=== PATIENT | female | born 1955 | race Caucasian/White ===

== ENCOUNTER 2025-03-22 02:48 | Day surgery (SDC) | payer MEDICARE, SELFPAY ==
[2025-03-12 09:23] VITALS: BMI 34.2
--- NOTE | 2025-03-12 09:45 | PC.NURSE ---
Report to the Outpatient Waiting Room, entrance under the green pavilion located off [facility], at time ___6:00AM____ on date ___03/22/25____. Planned Procedure Time: ___7:30AM .? Time changes happen often and if your time is changed the preop area will call you the afternoon before. - You and your visitor will be asked to self-screen and do not enter if you have any COVID symptoms. Please call surgeon if you need to reschedule. - A mask is optional within the hospital at this time. Patients may have clear liquids (water, carbonated beverages, clear teas, apple juice) until 3 hours prior to surgery (4:30AM) with a maximum of 20 ounces. - No food from midnight until time of surgery and no smoking, or chewing tobacco (or any form of nicotine). No chewing gum, candy or mints. Take only the following medications with a SIP of water on the morning of surgery: ___METOPROLOL DO NOT STOP ANY OF YOUR OTHER PRESCRIPTION MEDICATIONS PRIOR TO SURGERY EXCEPT THE FOLLOWING Hold all vitamins and supplements for 3 days per anesthesiologist.-LAST DOSE 03/18/25. Please no make-up, nail dutch, hairspray, perfume, deodorant, or body powder the day of surgery.? No jewelry (including any body piercings) or valuables the day of surgery, leave them at home.? Please take a shower or bath the night before, or the morning of, surgery with an antibacterial soap.? Wear comfortable, loose fitting clothing.? - Jewelry must be removed prior to entering the operating room.? Rings and piercings that are not removed may be cut off. - The hospital will not accept responsibility for valuables.? - Please leave all valuables, including medications, at home the day of surgery. If you are going home after surgery, a licensed set key driver must drive you home.? - NO public transportation without another adult if you receive anesthesia. - We recommend that an adult stay with you for 24 hours following discharge. - We also recommend that you do not drive, make important decision, drink alcoholic beverages, or take any drugs that were not prescribed by your health care provider for at least 24 hours after your discharge time. Follow any additional instructions given to you from your surgeon. Telephone instructions given to ____PATIENT and asked if any additional questions and then verbalized understanding. Patient advised to call surgeon office or pre surgery nurse liaison [phone] if any additional questions.
[2025-03-22] VITALS (8 sets, daily range): BP systolic 102–133; BP diastolic 51–96; PULSE 65–78; RESP 14–19; TEMP 36.3–36.8; O2SAT 92–97
--- NOTE | ~2025-03-22 | XR_ITS ---
INTRAOPERATIVE FLUOROSCOPY: CLINICAL HISTORY: 69 years old Female; ARTHRODESIS RIGHT FOOT PROCEDURE COMMENTS: Limited intraoperative fluoroscopy of the right great toe was performed. CUMULATIVE DOSE: 0.12 mGy FLUOROSCOPY TIME: 27 seconds FINDINGS/IMPRESSION: Please refer to operative note for further details. Reviewed, dictated and finalized at location A.
--- OUTSIDE RECORDS SUMMARY | 2025-03-22 02:53 | XMS_ITS | Encounter Summary ---
Author Organization [facility] Address [address] [place] [address] Care Team Providers Care Cattle Dealer Name Role Phone Bart Betancourt MD Primary Care Provider [phone] Encounter Details Date Type Department Care Team (Late st Contact Info) Description 03/13/2025 Transcribe Orders [facility] Cardiopulmonary Services [address] [place], [place] [phone] Murray Peter MD [address] [place] [address] Social History Tobacco Use Types Packs/Day Years Used Date Smoking Tobacco: Never Comments No Sex and Gender Information Value Date Recorded Sex Assigned at Female 03/13/2025 9:49 AM CDT Legal Sex Female 9:39 PM CDT Gender Identity Not on file Sexual Orientation Not on file documented as of this encounter Plan of Treatment Not on file documented as of this encounter Visit Diagnoses Diagnosis Pre-op evaluation- Primary Preoperative examination, unspecified documented in this encounter Care Teams Cattle Dealer Relationship Specialty Start Date End Date Bart Betancourt MD [address] [place] [address] PCP - General FAMILY PRACTICE 05/02/23 documented as of this encounter
--- OUTSIDE RECORDS SUMMARY | 2025-03-22 02:53 | XMS_ITS ---
Author Organization [facility] Address [address] [place] [address] Care Team Providers Care Color Worker Name Role Phone Asia BETTS, Steven Primary Care Provider Unavailab jerod Barker Marichuy Unavailable [phone] Jose Miguel Benites Unavailable [phone] REASON FOR VISIT bunion sx consult Encounters Encounter Location Date Provider Diagnosis Patsy Benites DPM [facility] [address] [place] [id number] 08/15/2024 Jose Miguel Benites PLAN OF TREATMENT No Information Progress Notes * Margie DREWB:1955 (69 yo F)Acc No.[id number]:08/15/2024 Patient: Noelle DREW Provider: Jose Miguel Benites DPM, FACFAS :1955 Age:68 Y Sex:Female Date:08/15/2024 Address:[address] [place] [address] [id number] Pcp:Steven Betancourt MD Subjective: * Chief Complaints: * 1. Bunion sx consult. * Medical History: Objective: Assessment: Plan: * Treatment: * Billing Information: * Visit Code: * Procedure Codes: * Sign off status: Pending * Provider: Jose Miguel Benites DPM, ISABEL Date: 08/15/2024
--- OUTSIDE RECORDS SUMMARY | 2025-03-22 02:53 | XMS_ITS | Encounter Summary ---
Author Organization [facility] Address [address] [place] [address] Care Team Providers Care Power Transformer Repairer Name Role Phone Bart Betancourt MD Primary Care Provider Encounter Details Date Type Department Care Team (Late st Contact Info) Description 03/14/2025 Transcribe Orders [facility] Cardiopulmonary Services [address] [place] [phone] Melissa Howe MD [place] [phone] Social History Tobacco Use Types Packs/Day Years Used Date Smoking Tobacco: Never Comments No Sex and Gender Information Value Date Recorded Sex Assigned at Female 03/13/2025 9:49 AM CDT Legal Sex Female 9:39 PM CDT Gender Identity Not on file Sexual Orientation Not on file documented as of this encounter Plan of Treatment Not on file documented as of this encounter Results * ECG 12 lead (03/13/2025 10:05 AM CDT) 03/13/2025 10:0 5 AM CDT Narrative [facility] - 03/14/2025 11:59 AM CDT HFG Test Date: 2025-03-13 Pat Name: ELPIDIO DREW Department: 100 Room: Gender: Female Mortgage Field Inspector: : 1955 Requested By: MELISSA HOWE Order Number: [id number] Heron MD: Yosef Molina Measurements Intervals [place] Rate: 69 P: 52 NE: 185 QRS: -85 QRSD: 97 T: 65 QT: 402 QTc: 433 Interpretive Statements SINUS RHYTHM WITH OCCASIONAL VENTRICULAR PREMATURE COMPLEXES MARKED LEFT AXIS DEVIATION [QRS AXIS < -30] Procedure Note Yosef Molina MD - 03/14/2025 HFG Test Date: 2025-03-13 Pat Name: ELPIDIO DREW Department: 100 Room: Gender: Female Mortgage Field Inspector: : 1955 Requested By: MELISSA HOWE Order Number: [id number] Reading MD: Yosef Molina Measurements Intervals [place] Rate: 69 P: 52 NE: 185 QRS: -85 QRSD: 97 T: 65 QT: 402 QTc: 433 Interpretive Statements SINUS RHYTHM WITH OCCASIONAL VENTRICULAR PREMATURE COMPLEXES MARKED LEFT AXIS DEVIATION [QRS AXIS < -30] us Melissa Howe MD ECG ORDERABLES Final Result Performing Organization Address City/State/[facility] Co de Phone Number [address] [address] documented in this encounter Visit Diagnoses Diagnosis Pre-op evaluation Preoperative examination, unspecified Pre-op evaluation- Primary Preoperative examination, unspecified documented in this encounter Care Teams Power Transformer Repairer Relationship Specialty Start Date End Date Bart Betancourt MD [address] [place] [address] PCP - General FAMILY PRACTICE 05/02/23 documented as of this encounter
--- OUTSIDE RECORDS SUMMARY | 2025-03-22 02:53 | XMS_ITS | Encounter Summary ---
Author Organization [facility] Address [address] [place] [address] Care Team Providers Care Beater Machine Operator Name Role Phone Bart Betancourt MD Primary Care Provider [phone] Encounter Details Date Type Department Care Team (Late st Contact Info) Description 03/13/2025 Transcribe Orders [facility] Cardiopulmonary Services [address] [place], [place] [phone] Murray Peter MD [address] [place] [address] Social History Tobacco Use Types Packs/Day Years [...] unspecified documented in this encounter Care Teams Beater Machine Operator Relationship Specialty Start Date End Date Bart Betancourt MD [address] [place] [address] PCP - General FAMILY PRACTICE 05/02/23 documented as of this encounter
--- OUTSIDE RECORDS SUMMARY | 2025-03-22 02:53 | XMS_ITS | Encounter Summary ---
Author Organization [facility] Address [address] [place] [address] Care Team Providers Care Proprietary Trader Name Role Phone Bart Betancourt MD Primary Care Provider [phone] Encounter Details Date Type Department Care Team (Late st Contact Info) Description 03/13/2025 Transcribe Orders [facility] Cardiopulmonary Services [address] [place], [place] [phone] Murray Peter MD [address] [place] [address] Social History Tobacco Use Types Packs/Day Years [...] unspecified documented in this encounter Care Teams Proprietary Trader Relationship Specialty Start Date End Date Bart Betancourt MD [address] [place] [address] PCP - General FAMILY PRACTICE 05/02/23 documented as of this encounter
--- OUTSIDE RECORDS SUMMARY | 2025-03-22 02:53 | XMS_ITS | Encounter Summary ---
Author Organization [facility] Address [address] [place] [address] Care Team Providers Care Switch Tender Name Role Phone Bart Betancourt MD Primary Care Provider [phone] Encounter Details Date Type Department Care Team (Late st Contact Info) Description 03/14/2025 Transcribe Orders [facility] Cardiopulmonary Services [address] [place], [place] [phone] Murray Peter MD [address] [place] [address] Social History Tobacco Use Types Packs/Day Years [...] unspecified documented in this encounter Care Teams Switch Tender Relationship Specialty Start Date End Date Bart Betancourt MD [address] [place] [address] PCP - General FAMILY PRACTICE 05/02/23 documented as of this encounter
--- OUTSIDE RECORDS SUMMARY | 2025-03-22 02:53 | XMS_ITS | Patient Health Record ---
Author Organization [facility] Address [address] [place] [address] Care Team Providers Care Client Solutions Manager Name Role Phone Steven Betancourt MD Primary Care Provider UnavailMarichuy Louie Unavailable [phone] Jose Miguel Benites Unavailable [phone] ALLERGIES No Known Allergies REASON FOR REFERRAL No Information MEDICATIONS Medication SIG (Take, Route, Frequency, Duration) Notes Start Date End Date Status amLODIPine Besylate-Valsarta n 10-320 MG TAKE 1 TABLET BY MOUTH ONCE DAILY Oral for 90 Days Active Ozempic (2 MG/DOSE) 8 MG/3ML INJECT 2 MG SUBCUTANEOUSLY WEEKLY Subcutaneous for 28 Days Active Metoprolol Succinate ER 100 MG TAKE 1 TABLET BY MOUTH ONCE DAILY Oral for 90 Days Active glipiZIDE 5 MG TAKE 1 TABLET BY LORETTA TH ONCE DAILY Oral for 90 Days Active hydroCHLOROthiazide 25 MG Oral for 90 Days Active SOCIAL HISTORY Tobacco Use: Social History Observation Description Date Details (start date - stop date) Never Smoker NA - NA Sex Assigned At : Social History Observation Description Sex Assigned At Unknown Tobacco Use/Smoking Question Answer Notes Tobacco use: nonsmoker PROBLEMS Problem Type ICD Code Onset Dates Problem Status W/U Status Risk SNOMED Code Notes Problem Hallux valgus (acquired), right foot (M20.11) Active confirmed 584717099391025 VITAL SIGNS Weight-kg 108.86 kg 07/02/2024 Height 67 in 07/02/2024 Weight 240 lbs 07/02/2024 BMI 37.59 kg/m2 07/02/2024 Encounters Encounter Location Date Provider Diagnosis [facility] [address] [place], [place] [phone] 08/15/2024 Jose Miguel Benites [facility] [address] [phone] 07/02/2024 Marichuy Barker Hallux valgus (acquired), right foot M20.11 ASSESSMENTS Encounter Date Diagnosis Assessment Notes Treatment Notes Treatment Clinical Notes Section Notes 07/02/2024 Hallux valgus (acquired), right foot (ICD-10 - M20.11) 07/02/2024 Other Advised RICE. Advised stretching exercises and supportive shoes. Do not go barefoot. Consider orthtics, PT, injection. Try topical or oral anti-inflammato ry for additional relief if needed. Briefly discussed surgical treatment--proc edure, post op course. She wants to wait until fall as she is doing all the outside mowing etc as her recovers from knee surgery. She will make appointment for x-rays and pre op visit with Dr Benites in July or August. PLAN OF TREATMENT No Information Insurance Providers Payer Name Payer Address Payer Phone Subscriber Number Group Number Insured Name Patient Relationship to Insured Coverage Start Date Coverage End Date [employer] [address] [place], [place] [phone] [id number] Noelle Drew Self - patient is the insured MEDICAL (GENERAL) HISTORY Medical History History ICD Code osteoarthritis hypertension type 2 diabetes Surgical History Surgery Date(Month/Year) cardiac ablation
--- OUTSIDE RECORDS SUMMARY | 2025-03-22 02:53 | XMS_ITS ---
Author Organization [facility] Address [address] [place] [address] Care Team Providers Care Footwear Sales Associate Name Role Phone Steven Betancourt MD Primary Care Provider Unavailab Marichuy Davenport Unavailable [phone] ALLERGIES No Known Allergies REASON FOR VISIT B/L bunions MEDICATIONS Medication SIG (Take, Route, Frequency, Duration) [...] valgus (acquired), right foot (M20.11) Active confirmed [id number] VITAL SIGNS Height 67 in 07/02/2024 Weight 240 lbs 07/02/2024 BMI 37.59 kg/m2 07/02/2024 Weight-kg 108.86 kg 07/02/2024 Encounters Encounter Location Date Provider Diagnosis [facility] [address] [id number] 07/02/2024 Marichuy Barker Hallux valgus (acquired), right [...] in July or August. PLAN OF TREATMENT Treatment Notes Assessment Notes Other Advised RICE. Advised stretching exercises and supportive shoes. Do not go barefoot. Consider orthtics, PT, injection. Try topical or oral anti-inflammatory for additional relief if needed. Briefly discussed surgical treatment--procedure, post op course. She wants to wait until fall as she is doing all the outside mowing etc as her recovers from knee surgery. She will make appointment for x-rays and pre op visit with Dr Benites in July or August. Next Appt Details Follow Up: 2 Months, Reason: Progress Notes * Margie DREWB:1955 (68 yo F)Acc No.[id number]:07/02/2024 Progress Notes Patient: Noelle DREW Provider: Marichuy Barker DPM, [facility] :1955 Age:68 Y Sex:Female Date:07/02/2024 Address:[address] [place] [address] Marilee [place], [id number] Pcp:Stevne Betancourt MD Subjective: * Chief Complaints: * 1. B/L bunions. * HPI: General Podiatry: Noelle presents to office c/o right foot pain. She feels her bunion has been getting worse. She can no longer fit into regular shoes. She feels it is complicating her hip pain as well. She is wondering about having it fixed. * ROS: General / Constitutional: Patient denies change in appetite , chills , fatigue , fever. Patient complains of calf cramps, frequent urination/colds/infections, bruises easily, back/joint pain, muscle stiffness. * Medical History: Osteoarthritis, Hypertension, Type 2 diabetes. * Surgical History: cardiac ablation . * Family History: Mother: stroke, blood clots, diagnosed with Type 2 diabetes mellitus without complication, unspecified whether superintendent terminal insulin use, Heart disease. Father: diagnosed with Type 2 diabetes mellitus without complication, unspecified whether superintendent terminal insulin use, Heart disease. Brother: diagnosed with Type 2 diabetes mellitus without complication, unspecified whether superintendent terminal insulin use. Sister: diagnosed with Type 2 diabetes mellitus without complication, unspecified whether superintendent terminal insulin use. * Social History: Tobacco Use: Tobacco Use/Smoking Tobacco use: nonsmoker. * Medications: Taking Ozempic (2 MG/DOSE) 8 MG/3ML Solution Pen-injector INJECT 2 MG SUBCUTANEOUSLY WEEKLY Subcutaneous , Taking Metoprolol Succinate ER 100 MG Tablet Extended Release 24 Hour TAKE 1 TABLET BY MOUTH ONCE DAILY Oral , Taking amLODIPine Besylate- Valsartan 10-320 MG Tablet TAKE 1 TABLET BY MOUTH ONCE DAILY Oral , Taking hydroCHLOROthiazide 25 MG Tablet Oral , Taking glipiZIDE 5 MG Tablet TAKE 1 TABLET BY MOUTH ONCE DAILY Oral * Allergies: N.K.D.A. Objective: * Vitals: Shoe Size: 11, Wt:240lbs, Wt-k.86, Ht: 67 in, BMI:37.59Index, Body Surface Area: 2.27. * Examination: General Examination: General appearance: alert, pleasant, well-nourished and in no acute distress. Vascular: Pedal pulses palpable b/l. Cap refill less than 3 seconds to digits b/l toes. Neurologic: Alert, oriented. Coordination symmetric. Dermatologic: No open sores. No rashes. Edema to right 1st mpj. Musculoskeletal: Gait steady. Mild antalgia. Pain on palpation right 1st mpj. Hallux in valgus. Prominent medial eminence. 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 Assessment: * Assessment: 1. Hallux valgus (acquired), right foot - M20.11 (Primary) Plan: * Treatment: * Follow Up: 2 Months * Billing Information: * Visit Code: 43895 Office Visit, New Pt., Level 3. * Procedure Codes: * Sign off status: Completed true * Provider: Marichuy Barker DPM, [facility] Date: 07/02/2024 History and Physical Notes * HPI (History of Present Illness) Category Sub-Category Detail Notes Category Not es General Podiatry Noelle george sents to office c/o right foot pain. She feels her bunion has been getting worse. She can no longer fit into regular shoes. She feels it is complicating her hip pain as well. She is wondering about having it fixed. Examination Category Sub-Category Detail Notes Category Not es General Examination General appearance: alert, pleasant, well-nouris hed and in no acute distress Vascular: Pedal pulses palpable b/l. Cap refill less than 3 seconds to digits b/l toes. Neurologic: Alert, oriented. Coordination symmetric. Dermatologic: No open sores. No rashes. Edema to right 1st mpj. Musculoskeletal: Gait steady. Mild antalgia. Pain on palpation right 1st mpj. Hallux in valgus. Prominent medial eminence. 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
--- OUTSIDE RECORDS SUMMARY | 2025-03-22 02:53 | XMS_ITS | Clinical Summary ---
Author Organization [facility] Address [address] [place] [id number] Care Team Providers Care Candy Vendor Name Role Phone Spike Ayala MD Primary Care Provider [phone] Encounters Date Type Department Care Team Description 03/14/2025 Transcribe Orders [facility] [address] [place] [address] Melissa Peter MD 03/14/2025 Transcribe Orders [facility] [address] [address] Murray Peter MD 03/13/2025 9:50 AM T Hospital Encounter [facility] [address] [place] [address] Murray Peter MD Discharge Disposition: Home or Self Care (Routine Discharge) 03/13/2025 9:50 AM T Hospital Encounter [facility] [address] [place] [address] Murray Peter MD Discharge Disposition: Home or Self Care (Routine Discharge) 03/13/2025 Transcribe Orders [facility] [address] [place] [address] Murray Peter MD 03/13/2025 Transcribe Orders [facility] [address] [place] [address] Murray Peter MD 03/13/2025 Transcribe Orders [facility] [address] [place] [address] Murray Peter MD 03/13/2025 Orders Only [facility] [address] [place] [address] Melissa Peter MD 03/13/2025 Orders Only [facility] [address] [place] [address] Murray Peter MD 03/13/2025 Travel from Last 3 Months Family History Medical History Relation Comments Breast Cancer Neg Hx Social History Tobacco Use Types Packs/Day Years Used Date Smoking Tobacco: Never Comments No Sex and Gender Information Value Date Recorded Sex Assigned at Female 03/13/2025 9:49 AM CDT Legal Sex Female 9:39 PM CDT Gender Identity Not on file Sexual Orientation Not on file Last Filed Vital Signs Vital Sign Reading Time Taken Comments Blood Pressure 160/110 08/28/2007 3:01 PM CDT Pulse 88 08/28/2007 3:00 PM CDT Regul ar Temperature - - Respiratory Rate 18 08/28/2007 3:00 PM CDT Oxygen Saturation - - Inhaled Oxygen Concentration - - Weight 132.9 kg (293 lb) 08/28/2007 3:00 PM CDT Height 167.6 cm (5' 6 ) 08/28/2007 3:00 PM CDT Body Mass Index 47.29 08/28/2007 3:00 PM CDT Plan of Treatment Health Maintenance Due Date Last Done Comments Colorectal Cancer Screening Colonoscopy (10 Years) 1955 Kidney Health Evaluation 1955 Hemoglobin A1C 1955 Diabetes: Retinopathy Eye Exam 1973 Hepatitis C 1973 DTaP, Tdap and Td Vaccines ( 1 - Tdap) 1974 Pneumococcal Vaccine: 50+ Years (1 of 2 - PCV) 1974 Zoster Vaccines (1 of 2) 2005 Lipid Panel 05/18/2008 05/18/2007 RSV Immunization or 60+ Years (1 - Risk 60-74 years 1-dose series) 2015 Annual Medicare Wellness Visit 2020 Dexa Scan (General) 2020 COVID-19 Vaccine (4 - 2023-2 5 season) 2024 10/28/2021, 01/31/2021, 01/03/2021 Mammogram Screening 05/18/2025 05/18/2023 Meningococcal B Vaccine Aged Out No l onger eligible based on patient's age to complete this topic Meningococcal Vaccine Aged Out No florentino savana eligible based on patient's age to complete this topic RSV Immunizations Under 20 Months Aged Out No longer eligible b ased on patient's age to complete this topic Procedures Procedure Name Priority Date/Time Associated Diagnosis Comments ECG 12-LEAD Routine 03/13/2025 10:05 AM CDT Pre-op evaluation BASIC METABOLIC PANEL Routine 03/13/2025 10:05 AM CDT Hypertension, essential Diabetes mellitus ([facility]) MG SCREENING W SEBASTIÁN PIOTR DIGI Routine 05/18/2023 11:03 AM CDT Encounter for screening mammogram for malignant neoplasm of breast LIPID PANEL Routine 05/18/2007 4:35 AM CDT from Last 3 Months or Most Recently Relevant to Health Maintenance Results * ECG 12 lead (03/13/2025 10:05 AM CDT) 03/13/2025 10:0 5 AM CDT Narrative [facility] - 03/14/2025 11:59 AM CDT HFG Test Date: 2025-03-13 Pat Name: ELPIDIO DREW Department: 100 Room: Gender: Female Upward Bound Director: : 1955 Requested By: MELISSA PETER Order Number: [id number] Reading MD: Yosef Molina Measurements Intervals [place] Rate: 69 P: 52 IN: 185 QRS: -85 QRSD: 97 T: 65 QT: 402 QTc: 433 Interpretive Statements SINUS RHYTHM WITH OCCASIONAL VENTRICULAR PREMATURE COMPLEXES MARKED LEFT AXIS DEVIATION [QRS AXIS < -30] Procedure Note Yosef Molina MD - 03/14/2025 HFG Test Date: 2025-03-13 Pat Name: ELPIDIO DREW Department: 100 Room: Gender: Female Upward Bound Director: : 1955 Requested By: MELISSA PETER Order Number: [id number] Reading MD: Yosef Molina Measurements Intervals [place] Rate: 69 P: 52 IN: 185 QRS: -85 QRSD: 97 T: 65 QT: 402 QTc: 433 Interpretive Statements SINUS RHYTHM WITH OCCASIONAL VENTRICULAR PREMATURE COMPLEXES MARKED LEFT AXIS DEVIATION [QRS AXIS < -30] us Melissa Peter MD ECG ORDERABLES Final Result [facility] [place] [place] [address] * (ABNORMAL) BASIC METABOLIC PANEL (03/13/2025 10:05 AM CDT) GLUCOSE 131(H) 70 - 99 MG/DL 03/13/2025 11:08 AM CDT [facility] BUN 17 7 - 18 MG/DL 03/13/2025 11:08 AM CDT [facility] CREATININE S/P/B 1.01 0.50 - 1.20 MG/DL 03/13/2025 11:08 AM CDT [facility] SODIUM S/P/B 139 136 - 145 MMOL/L 03/13/2025 11:08 AM CDT [facility] POTASSIUM S/P/B 3.9 3.5 - 5.1 MMOL/L 03/13/2025 11:08 AM CDT [facility] CHLORIDE S/P/B 102 100 - 108 MMOL/L 03/13/2025 11:08 AM CDT [facility] CO2 26.9 21.0 - 32.0 MMOL/L 03/13/2025 11:08 AM CDT [facility] CALCIUM S/P/B 9.3 8.5 - 10.1 MG/DL 03/13/2025 11:08 AM CDT [facility] ANION GAP 10.1 5.0 - 15.0 MMOL/L 03/13/2025 11:08 AM CDT [facility] BUN CREATININE RATIO 16.8 6 - 26 03/13/2025 11:08 AM CDT [facility] GFR ESTIMATE 60(L) >90 ML/MIN/1.7 3 M2 03/13/2025 11:08 AM CDT [facility] Comment: NOTE: eGFR is not calculated for patients <18 years of age. This is an estimated GFR calculation using the new CKD EPI creatinine equation without race and so does not require a correction factor for race. This estimated GFR should not be used for calculating drug doses. 03/13/2025 10:0 5 AM CDT us Melissa Peter MD LABORATORY Final Result [facility] [address] [place] [address], [place] * MG SCREENING W SEBASTIÁN PIOTR DIGI (05/18/2023 11:03 AM CDT) Anatomical Region Laterality Modality Breast Bilateral Computed Tomogra phy, Other 05/18/2023 4:49 PM CDT Narrative 05/18/2023 4:52 PM CDT IMAGING STUDIES: Bilateral screening mammograms with computer-aided detection with 2-D and 3-D imaging. Tomosynthesis. DATE: 05/18/2023 10:51 AM HISTORY: z12.31 . Routine screening COMPARISON: 06/15/2018. 10/03/2019. TISSUE TYPE: There are scattered areas of fibroglandular density. FINDINGS: 1. Mild fibroglandular tissue pattern is present. 2. No malignant microcalfcifications, new dominant masses, or architectural distortion. 3. No skin thickening or nipple retraction. Axillary regions are within normal limits. IMPRESSION: 1. No mammographic evidence of malignancy. 2. Assessment: ACR BI-RADS 1 - NEGATIVE 3 .Routine Screening Bilateral MQSA BI-RADS Categories: Category 0 - needs additional imaging evaluation. Category 1 - negative. Category 2 - benign findings. Category 3 - probably benign findings, but short interval follow-up is recommended. Category 4 - suspicious abnormality and biopsy should be considered though the lesion may well be benign. Category 5 - highly suggestive of malignancy and appropriate action should be taken. Category 6 - known biopsy-proven malignancy A) A negative report should not delay a biopsy if a dominant or clinically suspicious mass is present. B) Adenosis and dense breasts may obscure an underlying neoplasm. C) Study interpreted with computer aided detection. Ordered By: SPIKE AYALA Interpreted By: Richy Gandhi, 05/18/2023 4:49 PM Spike Ayala MD MAMMO Final Result * (ABNORMAL) LIPID PANEL (05/18/2007 4:35 AM CDT) HDL 40 >39 mg/dL [employer] TO EPIC CONVERSION LIPOPROTEIN (A) 7 0 - 30 mg/dL [employer] TO EPIC CONVERSION LDL CONVERSION 117(H) <100 mg/dL [employer] TO EPIC CONVERSION CHOLESTEROL 172 <200 mg/dL [employer] TO EPIC CONVERSION TRIGLYCERIDES 151(H) <150 mg/dL [employer] TO EPIC CONVERSION VLDL CALCULATION 15 0 - 31 mg/dL [employer] TO EPIC CONVERSION CHOL/HDL RATIO 4.3(H) 0 - 4 MED[employer] TO EPIC CONVERSION CHOL/HDL RATIO 2.9 0 - 3 MED[employer] TO EPIC CONVERSION APOLIPOPROTEIN B 88 0 - 105 mg/dL [employer] TO EPIC CONVERSION NON HDL CHOLESTEROL 132(H) 0 - 130 mg/dL [employer] TO EPIC CONVERSION HOMOCYSTEINE (U) 9 0 - 9 umol/l [employer] TO EPIC CONVERSION HOMOCYSTEINE (U) NORMAL LEVEL IS LESS THAN OR EQUAL TO 9 MILD IS 10 TO 15 umol/L MODERATE IS 16 [employer] TO EPIC CONVERSION 05/18/2007 4:35 AM CDT 05/18/2007 4:35 AM CDT Narrative [employer] TO EPIC CONVERSION - 05/18/2007 5:32 AM CDT Reviewed by RUBENS May 18 2007 7:57:00:000AM us Generic Conversion [facility] Final R esult [employer] TO EPIC CONVERSION from Last 3 Months or Most Recently Relevant to Health Maintenance Insurance [employer] Care Teams Candy Vendor Relationship Specialty Start Date End Date Spike Ayala MD [address] [place] [address] PCP - General FAMILY PRACTICE 05/02/23
[2025-03-22] MEDS: LACTATED RINGERS 1,000 ML 30 ML IV CONT ×2 (06:30→09:15)
--- NOTE | 2025-03-22 06:42 | P.PNAN_ITS ---
Anes - Initial Pre Proc Eval Procedure: Operation Date: 03/22/25 07:30 Proposed Procedures p Arthrodesis of First Metatarsal Phalangeal Joint Right Foot, Cruz Metatarsal Head Resection Right Foot - Jai Mercado Jr., DPM Date/Time: 03/22/25 06:42 Surgeon: Jai Mercado Jr., DPM Pre Op Diagnosis: Bunion Rt Foot, Matatarsalgia Rt Foot Patient Data Age: 69 Gender: F Height: 1.7 m Weight: 99 kg Allergies Allergy/AdvReac Type Severity Reaction Status Date / Time penicillin G Allergy rash Verified 03/12/25 09:17 Home Medications ?Medication ?Instructions ?Recorded ?Confirmed ?Type amlodipine 10 mg-valsartan 320 mg 1 tablet PO QAM 03/12/25 03/12/25 History tablet glipizide 5 mg tablet 5 mg PO BID 03/12/25 03/12/25 History hydrochlorothiazide 25 mg tablet 25 mg PO QAM 03/12/25 03/12/25 History melatonin 10 mg capsule 10 mg PO HS PRN sleep 03/12/25 03/12/25 History metoprolol succinate 100 mg 100 mg PO QAM 03/12/25 03/12/25 History tablet,extended release 24 hr oxycodone-acetaminophen 5 mg-325 1 tablet PO Q4-6H PRN pain 03/12/25 03/12/25 History mg tablet rivaroxaban 10 mg tablet (Xarelto) 10 mg PO Q24H 03/12/25 03/12/25 History semaglutide 2 mg/dose (8 mg/3 mL) 2 mg subcut WEEKLY 03/12/25 03/12/25 History subcutaneous pen injector (Ozempic) Patient hx anesthesia problems: none Family hx anesthesia problems: none Results Review: All pre-operative results and documents have been reviewed as part of the pre- operative evaluation. [facility] Past Medical History Medical History (Updated 03/22/25 @ 06:42 by Steven Peter MD) Obesity HTN (hypertension) Diabetes Surgical History Surgical History (Updated 03/22/25 @ 06:42 by Steven Peter MD) History of cardiac ablation for atrial fibrillation H/O laparoscopy Social History Social History Smoking packs per day: 0.25 Smoking cigarettes per day: 5.0 Years smoked: 4 Smoking pack-years: 1.00 Smoking status: Former smoker Tobacco type: cigarettes Smoking end date: 05/28/79 Alcohol intake: current Living arrangements: with family Additional living arrangements comments: [facility] Spiritual care concerns: No Anes - Eval Final PreProcedure Day of Procedure 03/22/25 06:42 Patient weight: obese Heart: regular rate and rhythm Lungs: clear to auscultation Airway: Mallampati scale class II Neurological: alert and oriented Last oral intake: >/= 8 hours ASA classification: III Emergent: no Anesthetic plan: proceed Anesthesia type and monitoring: general LMA and standard monitoring Results Review: All pre-operative results and documents have been reviewed as part of the pre- operative evaluation. Informed Consent: The patient's anesthetic plan and its attendant risks and benefits were discussed with the patient/family/POA. Questions were solicited and answers provided to the satisfaction of the patient/family/POA.
[2025-03-22 07:04] LABS: Glucose Point of Care 164 mg/dl (65-105)
--- NOTE | 2025-03-22 07:13 | WPDHPUPDATE1 ---
History and Physical Update Update Date/Time: 03/22/25 07:13 History and Physical has been reviewed, including an updated exam of the patient. There are NO changes in the patient's condition. Risks, benefits, and alternatives have been discussed and questions answered. Patient agrees to proceed with procedure.
[2025-03-22] MEDS: ceFAZolin 2 GM/D5W 50 ML 2 GM/50 ML BAG IVPB (07:28)
[2025-03-22] MEDS: LIDOCAINE 2% LOCAL INJ 20 ML VIAL 10 ML INFILTRATE (07:51)
--- NOTE | 2025-03-22 09:23 | W.PM.PROC2 ---
Procedure Note - Detailed Date of Procedure 03/22/25 Pre-op Diagnosis 1. Bunion Right Foot 2. Matatarsalgia Right Foot with fibular deviation of digits 2-5 Post-op Diagnosis Same Procedure Performed 1. Arthrodesis of the 1st Metatarsal phalangeal joint right foot 2. Panmetatarsal head resection right foot Surgeon Jai Mercado Jr., DPM Anesthesia General and Local Indications Painful right forefoot with fibular deviation of digits 1-5 Description of Procedure PROCEDURE IN DETAIL: Under mild sedation, the patient was brought into the operating room, placed on the operating table in supine position. A pneumatic ankle tourniquet was placed about the patient's ipsilateral ankle. Following general anesthesia and a Davis Block with 20ccs of 2% Lidocaine plain and 0.5% Marcaine plain, the foot was then scrubbed, prepped, and draped in the usual aseptic manner. An Esmarch bandage was then used to exsanguinate the patient's foot and the pneumatic ankle tourniquet was then inflated. Surgery began in the following manner: Attention was directed to the dorsal medial aspect of the 1st metatarsophalangeal joint where there was a moderate subcutaneous prominence was noted. The incision was made starting along the central shaft of the 1st metatarsal and extending just proximal to the interphalangeal joint of the hallux. The incision was continued deep down through the subcutaneous tissues using sharp and blunt dissection. All bleeders were cauterized as necessary. At this point, the dissection was continued down to the level of the periosteum and capsular structures overlying the 1st metatarsophalangeal joint. A full length periosteum and capsular incision was made just medial to the extensor hallucis longus tendon. The periosteum and capsular structures were freed from the base of the proximal phalanx as well as the distal 1st metatarsal. At this point, the 1st metatarsophalangeal joint was identified. There was loss of articular cartilage to the head of the 1st metatarsal as well as the base of the proximal phalanx worse centrally and medially. There was significant broadening and hypertrophy of the 1st metatarsophalangeal joint. Utilizing a sagittal bone saw, the hypertrophied 1st metatarsal was resected dorsally, medially, and laterally. A power bur was used to make sure that there were no rough edges and also to further debride the hypertrophic 1st metatarsal. Next, a rongeur was used to resect the hypertrophic base of the proximal phalanx. At this point, the reamer system for the Maxforce plate system was used to denude the degenerative cartilage from the head of the 1st metatarsal as well as the base of the proximal phalanx. The cartilage and subchondral bone were fully debrided utilizing the reamer system until healthy bleeding bone was noted. Next, a 2-0 drill bit was used to further fenestrate the head of the 1st metatarsal as well as the base of the proximal phalanx in order to allow fusion across the 1st metatarsophalangeal joint. Next, a guide wire for a 3.0 headless Arthrex compression screw was driven from the medial aspect of the base of the proximal phalanx into the head of the 1st metatarsal in order to serve as temporary fixation, next the cannulated screw was driven and provided excellent compression. Next A large steel plate was used to make sure that the hallux was in a rectus position both in the sagittal plane as well as the frontal plane. Excellent position of the hallux was noted. Next, a Maxforce plate was placed atop the 1st metatarsophalangeal joint held in position with Emmett wires. Utilizing standard principles and techniques, the distal drill holes were drilled and three 3.0 mm fully-threaded locking screws were driven from dorsal to plantar holding the distal aspect of the plate intact. At this point, the Maxforce compression system was utilized from dorsal distal to proximal plantar across the 1st metatarsophalangeal joint with excellent compression noted. Next, a 3.0mm locking screw was used to further compress the joint along the oblong dynamic compression screw slot. Next, the remaining 2 proximal drill holes were drilled from dorsal to plantar across and two 3.0 mm locking screws were driven from dorsal to plantar. The wound site was then flushed with copious amounts of sterile saline. Fluoroscopy was used to make sure that the plate was appropriately aligned and oriented and also to make sure that the screws were of appropriate length and orientation. Excellent position of the 1st metatarsophalangeal joint was visualized in all planes. Next, the periosteum and capsular structures were reapproximated with 3-0 Vicryl. Next, the subcutaneous structures were reapproximated with 4-0 Vicryl. Next, the skin was reapproximated and coapted utilizing 4-0 Monocryl in running subcuticular suture fashion technique. Attention was directed to the dorsal lateral aspect of the 2nd intermetatarsal space of the right foot where a 2 cm incision was made lateral to the extensor tendons to the second digit to the shaft of the second metatarsal. The incision was continued deep down through the subcutaneous tissues using sharp and blunt dissection. All bleeders were cauterized as necessary.A full-length periosteal incision was made overlying the second metatarsal distally. I reflected the periosteal and capsular structures from the head of the metatarsal Next, a sagittal bone saw was used to resect the head of the second metatarsal proximal at the surgical neck of the 2nd metatarsal. The second metatarsal was removed from the operative site and placed on the back table and discarded. Fluoroscopy was used to make sure that the resected distal second metatarsal was adequate. The edges were smoothed out with a bone rasp. I used a 0.045 K wire to stabilize the 2nd metatarsal phalangeal joint, utilizing fluroscopy for guidance. I applied a Jurgan ball to the K wire and trimmed. The exact procedure was performed for the 3rd metatarsal. I made a seperate incision over the fourth intermetatarsal space and performed the same procedure as the second metatarsal.Next, the periosteum and capsular structures were reapproximated with 3-0 Vicryl. Next, the subcutaneous structures were reapproximated with 4-0 Vicryl. Next, the skin was reapproximated and coapted utilizing 4-0 Monocryl in running subcuticular suture fashion technique. Upon completion of the procedure, the incision was dressed with Steri-Strips, Adaptic, 4x4s, Kerlix, and Coban. The pneumatic ankle tourniquet was then deflated and a prompt hyperemic response was noted to all digits of the foot. A posterior splint was then applied to the affected lower extremity. It is important to note that Dr. Mercado was present throughout the procedure. The patient did very well with the procedure and the anesthesia. The patient was transferred to the recovery room with vital signs stable and vascular status intact to all toes of the foot. Following a period of postoperative monitoring, the patient will be discharged home on the following written and oral postoperative instructions: 1. Keep the dressing clean, dry, and intact. 2. The patient to be strictly nonweightbearing with a knee scooter or crutches. 3. The patient should ice and elevate the foot when at rest. 4. The patient should contact Dr. Mercado for all postop care and if any problems should arise. 5. Prescriptions were written for Percocet 5/325, dispensed 40 to be taken 1 p.o. q.4-6 hours as needed for severe pain. Furthermore, the patient should also take Xarelto 10 mg to be taken 1 p.o. daily starting 24 hours after surgery to prevent DVT for 14 days followed by one 325 mg aspirin until walking is re-initiated. Implants Arthrex Maxforce plate with 3.0 Locking and Non locking screws Arthrex Headless 3.5mm Cannulated screw Estimated Blood Loss 1 Drains No Packing No Pathology None sent Complications No immediate complications Condition Stable Disposition Same day
[2025-03-22 09:31] LABS: Glucose Point of Care 176 mg/dl (65-105)
[2025-03-22] MEDS: oxyCODONE HCL (*CRX) 5 MG TAB IR PO (10:24)
== END 2025-03-22 11:09 | disposition home or self-care (01) ==
PROVIDERS: PCP Emergency Medicine; Visit Provider Podiatrist Foot & Ankle Surgery
PROC: (CPT 28750; principal; 2025-03-22 07:30)
DX: M20.11 Hallux valgus (acquired), right foot (principal); M21.611 Bunion of right foot; M21.6X1 Other acquired deformities of right foot; M19.071 Primary osteoarthritis, right ankle and foot; I10 Essential (primary) hypertension; E11.9 Type 2 diabetes mellitus without complications; I48.91 Unspecified atrial fibrillation; E66.9 Obesity, unspecified; Z68.34 Body mass index [BMI] 34.0-34.9, adult; Z79.84 Long term (current) use of oral hypoglycemic drugs; Z79.891 Long term (current) use of opiate analgesic; Z79.01 Long term (current) use of anticoagulants; Z79.85 Long-term (current) use of injectable non-insulin antidiabetic drugs; Z98.890 Other specified postprocedural states; Z87.891 Personal history of nicotine dependence; Z86.79 Personal history of other diseases of the circulatory system
CPT/HCPCS: 28750; 28114; 82948; 99199; A9270; C1713; C1769; J0690; J1100; J2003; J2250; J2405; J2704; J3010; J7120